=== PATIENT | female | born 1985 | race African-American/Black ===

== ENCOUNTER 2021-05-09 14:57 | Emergency (ER) | payer SELFPAY ==
[2021-05-09] MEDS ORDERED: Ondansetron 4 MG/2 ML SDV IVPUSH ONE (15:30)
[2021-05-09] MEDS ORDERED: Sodium Chloride 0.9% 10 ML Syringe FLUSH PRN (15:30)
[2021-05-09] MEDS ORDERED: Sodium Chloride 0.9% 1,000 ML IV SCH (15:30)
[2021-05-09] MEDS ORDERED: HYDROmorphone 0.5 MG/0.5 ML Syringe IVPUSH ONE (15:31)
--- NOTE | 2021-05-09 15:53 | EDM.PDOC ---
ED HPI GENERAL MEDICAL PROBLEM - General Chief Complaint: Abdominal Pain Stated Complaint: ABD/BACK PAIN Time Seen by Provider: 05/09/21 15:12 Source of Information: Reports: Patient, RN Notes Reviewed History Limitations: Reports: No Limitations - History of Present Illness INITIAL COMMENTS - FREE TEXT/NARRATIVE: Patient is a 35-year-old female who presents to the ER for evaluation of her low abdominal pain and back pain. Patient notes that this started this morning. States that she thinks she started her menses yesterday, and she typically gets some lower abdominal pain with this however it only lasts a few hours normally. She states that this pain has started and has not relented or stopped. Nothing seems really make it worse or better, states is just there. Her entire lower abdomen is sore, but she is exquisitely sore over the right lower quadrant at this time. Not sure about , and states there is a chance that she could be . Not having any fevers or chills, cough or shortness of breath, nausea/vomiting/diarrhea. Patient did not take anything for pain medication prior to coming to the ER. 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 ED EXAM, RENAL/ - Physical Exam Exam: See Below Exam Limited By: No Limitations General Appearance: Alert, WD/WN, No Apparent Distress Respiratory/Chest: No Respiratory Distress, Lungs Clear, Normal Breath Sounds, No Accessory Muscle Use, Chest Non-Tender Cardiovascular: Normal Peripheral Pulses, Regular Rate, Rhythm, No Edema GI/Abdominal: Normal Bowel Sounds, Soft, No Distention, No Mass, Tender (RLQ mainly with some rebound tenderness, but the entire lower abdomen is sore.) Extremities: Normal Inspection, Normal Capillary Refill Neurological: Alert, Oriented, Normal Cognition, No Motor/Sensory Deficits Psychiatric: Normal Affect, Normal Mood Skin Exam: Warm, Dry, Intact, Normal Color, No Rash Course - Vital Signs Last Recorded V/S: Last Vital Signs Temp 97.0 F 05/09/21 17:00 Pulse 88 05/09/21 17:00 Resp 18 05/09/21 17:00 BP 115/68 05/09/21 17:00 Pulse Ox 95 05/09/21 17:00 - Orders/Labs/Meds Orders: Active Orders 24 hr Category Date Time Status Peripheral IV Care [RC] . DIRECTED Care 05/09/21 15:31 Ordered Sodium Chloride 0.9% [Normal Saline] 1,000 ml Med 05/09/21 15:30 Ordered IV ASDIRECTED Sodium Chloride 0.9% [Saline Flush] Med 05/09/21 18:30 Active 10 ml FLUSH ASDIRECTED Sodium Chloride 0.9% [Saline Flush] Med 05/09/21 15:30 Ordered 10 ml FLUSH ASDIRECTED PRN Peripheral IV Insertion Adult [OM.PC] Stat Oth 05/09/21 15:31 Ordered Medication Orders Sodium Chloride (Normal Saline) 1,000 mls @ 999 mls/hr IV ASDIRECTED VICENTA Last Admin: 05/09/21 15:51 Dose: 999 mls/hr Documented by: DAVID Sodium Chloride (Sodium Chloride 0.9% 10 Ml Syringe) 10 ml FLUSH ASDIRECTED PRN PRN Reason: Keep Vein Open Last Admin: 05/09/21 16:57 Dose: 10 ml Documented by: DAVID Sodium Chloride (Sodium Chloride 0.9% 10 Ml Syringe) 10 ml FLUSH ASDIRECTED VICENTA Last Admin: 05/09/21 19:29 Dose: 10 ml Documented by: GINO Labs: Laboratory Tests 05/09/21 05/09/21 05/09/21 Range/Units 15:35 15:35 15:43 WBC 12.30 H (3.98-10.04) K/mm3 Corrected WBC 10.4 K/mm3 RBC 4.49 (3.98-5.22) M/mm3 Hgb 9.8 L (11.2-15.7) gm/dl Hct 29.4 L (34.1-44.9) % MCV 65.5 L (79.4-94.8) fl MCH 21.8 L (25.6-32.2) pg MCHC 33.3 (32.2-35.5) g/dl RDW Std Deviation 52.0 H (36.4-46.3) fL Plt Count 220 (182-369) K/mm3 Neut % (Auto) Cancelled Lymph % (Auto) Cancelled [place] % (Auto) Cancelled Eos % (Auto) Cancelled Baso % (Auto) Cancelled Neut # (Auto) Cancelled Lymph # (Auto) Cancelled [place] # (Auto) Cancelled Eos # (Auto) Cancelled Baso # (Auto) Cancelled Neutrophils % (Manual) 47 (40-60) % Band Neutrophils % 1 (0-10) % Lymphocytes % (Manual) 35 (20-40) % Atypical Lymphs % 0 % Monocytes % (Manual) 14 H (2-10) % Eosinophils % (Manual) 0 L (0.7-5.8) % Basophils % (Manual) 1 (0.1-1.2) Myelocytes % 2 Nucleated RBCs 18.0 % Manual Slide Review Cancelled Platelet Estimate Adequate Plt Morphology Comment See note Polychromasia 1+ slight Poikilocytosis 2+ moderate Anisocytosis 2+ moderate Macrocytosis 1+ slight Target Cells 2+ moderate Ovalocytes 1+ slight RBC Morph Comment Sodium (136-145) mEq/L Potassium (3.5-5.1) mEq/L Chloride (98-107) mEq/L Carbon Dioxide (21-32) mEq/L Anion Gap (5-15) BUN (7-18) mg/dL Creatinine (0.55-1.02) mg/dL Est Cr Clr Drug Dosing mL/min Estimated GFR (MDRD) (>60) mL/min BUN/Creatinine Ratio (14-18) Glucose (70-99) mg/dL Calcium (8.5-10.1) mg/dL Total Bilirubin (0.2-1.0) mg/dL AST (15-37) U/L ALT (14-59) U/L Alkaline Phosphatase (46-116) U/L C-Reactive Protein (<1.0) mg/dL Total Protein (6.4-8.2) g/dl Albumin (3.4-5.0) g/dl Globulin gm/dL Albumin/Globulin Ratio (1-2) Lipase (73-393) U/L Urine Color Yellow (Yellow) Urine Appearance Clear (Clear) Urine pH 7.0 (5.0-8.0) Ur Specific [place] 1.020 (1.005-1.030) Urine Protein 1+ H (Negative) Urine Glucose (UA) Negative (Negative) Urine Ketones Negative (Negative) Urine Occult Blood 1+ H (Negative) Urine Nitrite Negative (Negative) Urine Bilirubin Negative (Negative) Urine Urobilinogen 0.2 (0.2-1.0) Ur Leukocyte Esterase Negative (Negative) Urine RBC 0-5 (0-5) /hpf Urine WBC 0-5 (0-5) /hpf Ur Squamous Epith Cells 0-5 (0-5) /hpf Urine Bacteria Few (FEW) /hpf Urine Mucus Moderate H (FEW) /hpf Urine HCG, Qual Negative (NEGATIVE) 05/09/21 Range/Units 15:43 WBC (3.98-10.04) K/mm3 Corrected WBC K/mm3 RBC (3.98-5.22) M/mm3 Hgb (11.2-15.7) gm/dl Hct (34.1-44.9) % MCV (79.4-94.8) fl MCH (25.6-32.2) pg MCHC (32.2-35.5) g/dl RDW Std Deviation (36.4-46.3) fL Plt Count (182-369) K/mm3 Neut % (Auto) Lymph % (Auto) [place] % (Auto) Eos % (Auto) Baso % (Auto) Neut # (Auto) Lymph # (Auto) [place] # (Auto) Eos # (Auto) Baso # (Auto) Neutrophils % (Manual) (40-60) % Band Neutrophils % (0-10) % Lymphocytes % (Manual) (20-40) % Atypical Lymphs % % Monocytes % (Manual) (2-10) % Eosinophils % (Manual) (0.7-5.8) % Basophils % (Manual) (0.1-1.2) Myelocytes % Nucleated RBCs % Manual Slide Review Platelet Estimate Plt Morphology Comment Polychromasia Poikilocytosis Anisocytosis Macrocytosis Target Cells Ovalocytes RBC Morph Comment Sodium 143 (136-145) mEq/L Potassium 3.8 (3.5-5.1) mEq/L Chloride 109 H (98-107) mEq/L Carbon Dioxide 25 (21-32) mEq/L Anion Gap 12.8 (5-15) BUN 5 L (7-18) mg/dL Creatinine 0.6 (0.55-1.02) mg/dL Est Cr Clr Drug Dosing 130.76 mL/min Estimated GFR (MDRD) > 60 (>60) mL/min BUN/Creatinine Ratio 8.3 L (14-18) Glucose 119 H (70-99) mg/dL Calcium 8.4 L (8.5-10.1) mg/dL Total Bilirubin 2.1 H (0.2-1.0) mg/dL AST 98 H (15-37) U/L ALT 72 H (14-59) U/L Alkaline Phosphatase 107 (46-116) U/L C-Reactive Protein 0.8 (<1.0) mg/dL Total Protein 8.2 (6.4-8.2) g/dl Albumin 3.5 (3.4-5.0) g/dl Globulin 4.7 gm/dL Albumin/Globulin Ratio 0.7 L (1-2) Lipase 193 (73-393) U/L Urine Color (Yellow) Urine Appearance (Clear) Urine pH (5.0-8.0) Ur Specific [place] (1.005-1.030) Urine Protein (Negative) Urine Glucose (UA) (Negative) Urine Ketones (Negative) Urine Occult Blood (Negative) Urine Nitrite (Negative) Urine Bilirubin (Negative) Urine Urobilinogen (0.2-1.0) Ur Leukocyte Esterase (Negative) Urine RBC (0-5) /hpf Urine WBC (0-5) /hpf Ur Squamous Epith Cells (0-5) /hpf Urine Bacteria (FEW) /hpf Urine Mucus (FEW) /hpf Urine HCG, Qual (NEGATIVE) Meds: Medications Generic Name Dose Route Start Last Admin Trade Name Freq PRN Reason Stop Dose Admin Sodium Chloride 1,000 mls @ 999 mls/hr 05/09/21 15:30 05/09/21 15:51 Normal Saline IV 999 mls/hr ASDIRECTED VICENTA Administration Sodium Chloride 10 ml 05/09/21 15:30 05/09/21 16:57 Sodium Chloride 0.9% 10 Ml Syringe FLUSH 10 ml ASDIRECTED PRN Administration Keep Vein Open Sodium Chloride 10 ml 05/09/21 18:30 05/09/21 19:29 Sodium Chloride 0.9% 10 Ml Syringe FLUSH 10 ml ASDIRECTED VICENTA Administration Discontinued Medications Generic Name Dose Route Start Last Admin Trade Name Fabianq PRN Reason Stop Dose Admin Diatrizoate Meglum/Diatrizoate Sod 120 ml 05/09/21 18:25 05/09/21 19:28 Diatrizoate Meglumine/Diatrizoate Sodium 37% 120 Ml Bottle PO 05/09/21 18:26 90 ml ONETIME ONE Administration Hydromorphone HCl 0.5 mg 05/09/21 15:31 05/09/21 15:36 Hydromorphone 0.5 Mg/0.5 Ml Syringe IVPUSH 05/09/21 15:32 0.5 mg ONETIME ONE Administration Iopamidol 100 ml 05/09/21 18:25 05/09/21 19:29 Iopamidol 612 Mg/Ml 100 Ml Bottle IVPUSH 05/09/21 18:26 100 ml ONETIME ONE Administration Ondansetron HCl 4 mg 05/09/21 15:30 05/09/21 15:42 Ondansetron 4 Mg/2 Ml Sdv IVPUSH 05/09/21 15:31 Not Given ONETIME ONE - Re-Assessments/Exams Free Text/Narrative Re-Assessment/Exam: 05/09/21 15:51 Patient presents to the ER for the evaluation of her lower abdominal pain, we will go ahead and get basic labs to include a urinalysis by quick cath and a qualitative hCG to rule out , will await for initial lab results, and then move forward with imaging purposes. 05/09/21 16:43 Patient CBC has returned, and the white count is elevated at 12 at this time. Laboratory staff did come over and is concerned about the possibility of sickle cell disease, and she is going to be sending the patient's blood for pathology review. I will go ahead and inquire with the patient about the possibility of this, she did not make this known at initial exam. We will for sure try to get her followed up with her regular care provider for ongoing management, and results of the further laboratory review. 05/09/21 20:[address] has come back, radiology did appreciate an enlarged heart, a spleen that was absent, and incidental fat-containing umbilical hernia but no other acute abnormalities were appreciated. The appendix was visualized and was within normal size, there is no pelvic mass or adenopathy, no free fluid or inflammatory change that was seen. I did review the CT with Dr. 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 For today's purposes there is no major explanation as to what could have caused the patient's abdominal discomfort other than dysmenorrhea. We will have her follow-up likely with Dr. Westbrook for ongoing management at this time. Departure - Departure Time of Disposition: 20:06 Disposition: Home, Self-Care 01 Condition: Good Clinical Impression: Dysmenorrhea, Asplenia (congenital), Abnormal red cell morphology - Discharge Information *PRESCRIPTION DRUG MONITORING PROGRAM REVIEWED*: No *COPY OF PRESCRIPTION DRUG MONITORING REPORT IN PATIENT REMY: No Instructions: Dysmenorrhea, [id number] Referrals: Anais Westbrook MD [Physician] - 1 Week Forms: ED Department Discharge, ED Return to Work/School Form Additional Instructions: You were evaluated in the ER today for your lower abdominal pain. Thorough work-up done at today's visit demonstrates a white count that was modestly elevated, with an abnormal red cell morphology, clinically suspicious for possible sickle cell disease. Our laboratory has sent this out for further confirmation and testing. This will take some time to results, and you should be called with the results. CT of your abdomen demonstrates no focal abnormalities like appendicitis that would be the cause of your abdominal discomfort today. 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 You should receive a Pneumovax vaccine to help protect against pneumococcal pneumonia. This can be provided by a primary care provider. As you stated you do not have a primary care doctor in this area, I will refer you to Dr. Westbrook, a family practice provider in our clinic, she should be able to help you with all of your ongoing health management. Please call [phone] and obtain an appointment Dr. Westbrook, hopefully sometime next week for ongoing management. As far as your lower abdominal pain is concerned, it is likely that you could be suffering from dysmenorrhea or painful periods. Please try to use hot packs to the area, along with 600 mg ibuprofen every 6 hours for ongoing pain management. Please return to the ER at any time if symptoms change or worsen. Sepsis Event Note (ED) - Focused Exam Vital Signs: Vital Signs Temp Pulse Resp BP Pulse Ox 05/09/21 17:00 97.0 F 88 18 115/68 95 05/09/21 15:19 77 121/74 05/09/21 15:13 97.3 F 84 18 - My Orders Last 24 Hours: My Active Orders 05/09/21 15:30 Sodium Chloride 0.9% [Normal Saline] 1,000 ml IV ASDIRECTED Sodium Chloride 0.9% [Saline Flush] 10 ml FLUSH ASDIRECTED PRN 05/09/21 15:31 Peripheral IV Care [RC] . DIRECTED Peripheral IV Insertion Adult [OM.PC] Stat 05/09/21 18:30 Sodium Chloride 0.9% [Saline Flush] 10 ml FLUSH ASDIRECTED - Assessment/Plan Last 24 Hours: My Active Orders 05/09/21 15:30 Sodium Chloride 0.9% [Normal Saline] 1,000 ml IV ASDIRECTED Sodium Chloride 0.9% [Saline Flush] 10 ml FLUSH ASDIRECTED PRN 05/09/21 15:31 Peripheral IV Care [RC] . DIRECTED Peripheral IV Insertion Adult [OM.PC] Stat 05/09/21 18:30 Sodium Chloride 0.9% [Saline Flush] 10 ml FLUSH ASDIRECTED
[2021-05-09] MEDS ORDERED: Diatrizoate Meglumine/Diatrizoate Sodium 37% 120 ML Bottle PO ONE (18:25)
[2021-05-09] MEDS ORDERED: Iopamidol 612 MG/ML 100 ML Bottle IVPUSH ONE (18:25)
[2021-05-09] MEDS ORDERED: Sodium Chloride 0.9% 10 ML Syringe FLUSH SCH (18:30)
--- NOTE | 2021-05-09 19:50 | CT ---
CT abdomen and pelvis Technique: Multiple axial sections were obtained from above the dome of the diaphragm inferiorly through the pubic symphysis. Intravenous and oral contrast was utilized. Delayed images were obtained to the bladder. Findings: Visualized lung bases show nothing acute. Liver shows no focal abnormality. Spleen is not present. Heart is enlarged. No pericardial effusion is seen. Adrenal glands show no nodule. Kidneys show symmetric contrast enhancement. Delayed images show contrast within the distal ureters and within the bladder. Gallbladder is visualized and shows no calcification to indicate calcified gallstones. Pancreas is within normal limits. Abdominal aorta shows no aneurysm. No retroperitoneal adenopathy is seen. Several lymph nodes are seen within the right lower mesentery which are believed to be within normal limits. Appendix is seen which is normal in size. No pelvic mass or adenopathy is seen. No free fluid or inflammatory change is seen. Bone window settings were reviewed and appear within normal limits for the patient's age. Incidental note of a fat-containing umbilical hernia. Impression: 1. Heart is enlarged. 2. Absent spleen. 3. Incidental fat-containing umbilical hernia. 4. Other portions of the CT exam of the abdomen and pelvis appear within normal limits. Diagnostic code #3
== END 2021-05-09 20:40 | disposition home or self-care (01) ==
LOC: JD.ED 14:57
DX: N94.6 Dysmenorrhea, unspecified (principal); Q89.01 Asplenia (congenital); R71.8 Other abnormality of red blood cells
CPT/HCPCS: 36415; 74177; 80053; 81001; 81025; 83690; 85007; 85027; 86140; 96374; 99284; J1170; J7030; Q9963; Q9967

== ENCOUNTER 2021-08-06 04:03 | Emergency (ER) | payer SELFPAY ==
[2021-08-06] MEDS ORDERED: Alum Hydrox/Mag Hydrox/Simeth 30 ML, Lidocaine 2% 15 ML PO STA ×2 (04:38)
--- NOTE | 2021-08-06 04:42 | EDM.PDOC ---
<Dinesh Marquez - Last Filed: 08/06/21 06:56> ED HPI GENERAL MEDICAL PROBLEM - General Chief Complaint: Abdominal Pain Stated Complaint: SEVERE UPPER ABD PAIN Time Seen by Provider: 08/06/21 04:25 Source of Information: Reports: Patient, Family (Mother) History Limitations: Reports: Physical Impairment (Complaining of pain, reluctant to answer questions) - History of Present Illness INITIAL COMMENTS - FREE TEXT/NARRATIVE: Ms. Cisneros is a pleasant 35-year-old woman who now presents to the ED stating that she developed sudden-onset epigastric pain radiating through to her back as she was preparing to go to sleep around 2200 last night. She is unable to describe the character, and she states that she has not identified any modifiers, although she reported that her pain was made worse when I asked her to take a deep breath while auscultating her lungs. She denies associated nausea, vomiting, constipation, or diarrhea. She states that she took 2 baby aspirin and drank some hot milk, which did not help. No prior similar symptoms. Here in the ED, the patient was initially noted to be tachypneic at 24 rpm, otherwise, she is hemodynamically stable, afebrile, saturating 94% on room air. She is very anxious and excitable, constantly moving around the exam room. It is very difficult to obtain a history from her. Prior to last night, the patient denies having a recent fever, chills, sore throat, ear pain, nasal or sinus congestion, cough, dyspnea, chest pain, palpitations, nausea, vomiting, constipation, diarrhea, abdominal pain, urinary symptoms, recent weight gain or weight loss, recent bloody bowel movements or black bowel movements, recent joint aches, headaches, or rashes. The patient does not have a PCP. She has not received a COVID vaccination, nor an influenza vaccination this season. Upper Abdomen Pain Score (Numeric/FACES): 10 - Related Data Allergies Allergy/AdvReac Type Severity Reaction Status Date / Time No Known Allergies Allergy Verified 08/06/21 04:16 Home Meds: Home Meds Hydrocodone/Acetaminophen [HYDROcodone-Acetaminophen 5-325 MG] 1 each PO Q6H PRN #10 tab 08/06/21 [Rx] Pantoprazole Sodium [Protonix] 40 mg PO QAM #30 tablet. 08/06/21 [Rx] Past Medical History Gastrointestinal History: Reports: Other (See Below) (Congenital asplenia) [employer] History: Reports: Spontaneous - Past Surgical History Female Surgical History: Reports: D&C Social & Family History - Tobacco Use Tobacco Use Status *Q: Never Tobacco User Second Hand Smoke Exposure: No - Alcohol Use Alcohol Use History: No - Recreational Drug Use Recreational Drug Use: No - Living Situation & Occupation Living situation: Reports: Single, with Family (Mother) Occupation: Employed ([employer]) ED ROS GENERAL - Review of Systems Review Of Systems: Comprehensive ROS is negative, except as noted in HPI. ED EXAM, GI/ABD - Physical Exam Exam: See Below Exam Limited By: Physical Impairment General Appearance: Alert, WD/WN, Mild Distress (Patient very excitable, moving around a lot) Eyes: Bilateral: Normal Appearance, EOMI Ears: Normal External Exam, Hearing Grossly Normal Nose: Normal Inspection Throat/Mouth: Normal Inspection, Normal Lips, Normal Voice, No Airway Compromise Head: Atraumatic, Normocephalic Neck: Normal Inspection, Full Range of Motion Respiratory/Chest: No Respiratory Distress, Lungs Clear, Normal Breath Sounds, No Accessory Muscle Use Cardiovascular: Normal Peripheral Pulses, Regular Rate, Rhythm, No Edema, No Gallop, No JVD, No Murmur, No Rub GI/Abdominal Exam: Normal Bowel Sounds, Soft, No Organomegaly, No Distention, No Abnormal Bruit, No Mass, Tender (To a discrete area in the epigastrium only. Completely nontender elsewhere.) Back Exam: Normal Inspection, Full Range of Motion. No: CVA Tenderness (L), CVA Tenderness (R) Extremities: Normal Inspection, Normal Range of Motion, No Pedal Edema, Normal Capillary Refill Neurological: Alert, Oriented, Normal Cognition, No Motor/Sensory Deficits Psychiatric: Anxious Skin Exam: Warm, Dry, Intact, Normal Color, No Rash Course - Re-Assessments/Exams Free Text/Narrative Re-Assessment/Exam: 08/06/21 04:39 The patient is complaining of epigastric pain with no nausea. She has not identified any modifiers, although it did mention that her pain was worse when she was asked to take a deep breath, and she reports that she has tenderness in her epigastric area, only, with no tenderness whatsoever to palpation elsewhere on her abdomen. We will start with a GI cocktail, to see if that has any e ffect. If not, I will proceed with a work-up to evaluate for pancreatitis. 08/06/21 04:56 The patient reports getting no relief from the GI cocktail. I have therefore ordered a work-up including several blood tests and a CT of the abdomen and pelvis with oral and IV contrast. In case she requires admission or transfer, I have also ordered a swab for the SARS-CoV-2 virus. In the meantime, she will be given IV Dilaudid, IV Zofran, and IV fluid. 08/06/21 06:32 The patient's CBC is remarkable for leukocytosis of 19.22, but with 0% bandemia, and an H/H depressed at 9.3/28.4, with the remainder of her CBC being unremarkable. Her CMP is remarkable for mild hyperglycemia of 126, a TBil elevated at 2.1, and an AST/ALT mildly elevated at 84/60, respectively, and the remainder of her CMP being unremarkable. Her lipase level is within normal limits at 224. Her qualitative hCG is negative. Reviewing prior labs, I see that the patient's H/H was 9.8/29.4 on 05/09/2021. 08/06/21 07:[address] Galvan, and care of the patient turned over to him at this time, for change of shift. Departure - Departure Disposition: Home, Self-Care 01 Clinical Impression: Constipation, Dyspepsia, Reflux gastritis - Discharge Information Referrals: PCP,None [Primary Care Provider] - Forms: ED Department Discharge Additional Instructions: Return to the emergency room with any questions problems or worsening symptoms. Follow-up in the hospital clinic on Friday or of this week for recheck call today for an appointment [phone]. Your prescriptions have been sent to the [place] [facility] in the [employer] [facility]. The first 1 is for hydrocodone this is a pain pill take 1 every 6 hours only if needed. The second 1 is a stomach pill Protonix. Take 1 every morning starting tomorrow morning 30 to 60 minutes before your morning meal. 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 Place the other bottle in the refrigerator and drink in 6 hours if you do not have a large bowel movement. Sepsis Event Note (ED) - Evaluation Sepsis Screening Result: No Definite Risk <WendyrichardClint Lucius - Last Filed: 08/06/21 11:52> Course - Vital Signs Last Recorded V/S: Last Vital Signs Temp 36.5 C 08/06/21 04:17 Pulse 74 08/06/21 04:17 Resp 24 H 08/06/21 04:17 BP 130/80 08/06/21 04:17 Pulse Ox 94 L 08/06/21 04:17 - Orders/Labs/Meds Orders: Active Orders 24 hr Category Date Time Status Sodium Chloride 0.9% [Normal Saline] 1,000 ml Med 08/06/21 05:00 Active IV ASDIRECTED Medication Orders Sodium Chloride (Normal Saline) 1,000 mls @ 150 mls/hr IV ASDIRECTED VICENTA Last Admin: 08/06/21 05:33 Dose: 150 mls/hr Documented by: CLAY Labs: Laboratory Tests 08/06/21 08/06/21 08/06/21 Range/Units 05:25 05:25 05:25 WBC 19.22 H (3.98-10.04) K/mm3 RBC 4.26 (3.98-5.22) M/mm3 Hgb 9.3 L (11.2-15.7) gm/dl Hct 28.4 L (34.1-44.9) % MCV 66.7 L (79.4-94.8) fl MCH 21.8 L (25.6-32.2) pg MCHC 32.7 (32.2-35.5) g/dl RDW Std Deviation 49.4 H (36.4-46.3) fL Plt Count 272 (182-369) K/mm3 MPV TNP Neutrophils % (Manual) 35 L (40-60) % Band Neutrophils % 0 (0-10) % Lymphocytes % (Manual) 51 H (20-40) % Atypical Lymphs % 4 % Monocytes % (Manual) 9 (2-10) % Eosinophils % (Manual) 0 L (0.7-5.8) % Basophils % (Manual) 0 L (0.1-1.2) Metamyelocytes % 1 Nucleated RBCs 2.0 % Platelet Estimate Adequate Plt Morphology Comment See note Polychromasia 1+ slight Hypochromasia 2+ moderate Poikilocytosis 2+ moderate Anisocytosis 2+ moderate Microcytosis 1+ slight Sickle Cells Few Target Cells 2+ moderate RBC Morph Comment Abnormal Sodium 140 (136-145) mEq/L Potassium 4.0 (3.5-5.1) mEq/L Chloride 102 (98-107) mEq/L Carbon Dioxide 27 (21-32) mEq/L Anion Gap 15.0 (5-15) BUN 5 L (7-18) mg/dL Creatinine 0.5 L (0.55-1.02) mg/dL Est Cr Clr Drug Dosing 139.97 mL/min Estimated GFR (MDRD) > 60 (>60) mL/min BUN/Creatinine Ratio 10.0 L (14-18) Glucose 126 H (70-99) mg/dL Calcium 8.9 (8.5-10.1) mg/dL Total Bilirubin 2.1 H (0.2-1.0) mg/dL AST 84 H (15-37) U/L ALT 60 H (14-59) U/L Alkaline Phosphatase 98 (46-116) U/L Total Protein 8.0 (6.4-8.2) g/dl Albumin 3.8 (3.4-5.0) g/dl Globulin 4.2 gm/dL Albumin/Globulin Ratio 0.9 L (1-2) Lipase 224 (73-393) U/L HCG, Qual Negative (NEGATIVE) Meds: Medications Generic Name Dose Route Start Last Admin Trade Name Freq PRN Reason Stop Dose Admin Sodium Chloride 1,000 mls @ 150 mls/hr 08/06/21 05:00 08/06/21 05:33 Normal Saline IV 150 mls/hr ASDIRECTED VICENTA Administration Discontinued Medications Generic Name Dose Route Start Last Admin Trade Name Freq PRN Reason Stop Dose Admin Hydrocodone Bitart/Acetaminophen 1 tab 08/06/21 10:20 08/06/21 10:38 Acetaminophen/Hydrocodone 325-5 Mg Tab PO 08/06/21 10:21 1 tab ONETIME ONE Administration Al Hydroxide/Mg Hydroxide 30 0 ml 08/06/21 04:38 08/06/21 04:40 ml/ Lidocaine HCl 15 ml PO 08/06/21 04:39 45 ml ONETIME STA Administration Diatrizoate Meglum/Diatrizoate Sod 120 ml 08/06/21 06:25 08/06/21 07:01 Diatrizoate Meglumine/Diatrizoate Sodium 37% 120 Ml Bottle PO 08/06/21 06:26 120 ml ONETIME ONE Administration Fentanyl 50 mcg 08/06/21 07:49 08/06/21 08:14 Fentanyl 100 Mcg/2 Ml Sdv IVPUSH 08/06/21 07:50 50 mcg ONETIME ONE Administration Hydromorphone HCl 0.5 mg 08/06/21 04:53 08/06/21 05:34 Hydromorphone 1 Mg/Ml Syringe IVPUSH 08/06/21 04:54 0.5 mg ONETIME STA Administration Iopamidol 100 ml 08/06/21 06:25 08/06/21 07:01 Iopamidol 612 Mg/Ml 100 Ml Bottle IVPUSH 08/06/21 06:26 100 ml ONETIME ONE Administration Ondansetron HCl 4 mg 08/06/21 04:53 08/06/21 05:33 Ondansetron 4 Mg/2 Ml Sdv IVPUSH 08/06/21 04:54 4 mg ONETIME ONE Administration Pantoprazole Sodium 80 mg 08/06/21 07:49 08/06/21 08:14 Pantoprazole 40 Mg Vial IVPUSH 08/06/21 07:50 80 mg BOLUS ONE Administration Sodium Chloride 10 ml 08/06/21 06:25 08/06/21 07:01 Sodium Chloride 0.9% 10 Ml Sdv FLUSH 08/06/21 06:26 10 ml ONETIME ONE Administration Sucralfate 1 gm 08/06/21 07:49 08/06/21 08:13 Sucralfate Suspension 1 Gm/10 Ml Cup PO 08/06/21 07:50 1 gm ONETIME ONE Administration - Re-Assessments/Exams Free Text/Narrative Re-Assessment/Exam: 08/06/21 07:50 Assumed care at change of shift awaiting CT. CT did come back she is got increased stool within the colon no other acute changes noted. Appendix not well visualized pancreas within normal limits. On my examination she has active bowel sounds she is quite uncomfortable with pain in the epigastric area to a lesser degree this extends into the left upper quadrant. At this point she has had a GI cocktail of has not seem to help I will give her some Carafate Protonix and a little bit of fentanyl. He received Dilaudid and this has not helped. 08/06/21 10:23 She denies much improvement from the fentanyl I have given IV Protonix and p.o. Carafate and she is denying any this helped. I will give her [place] now see if we can get her some relief and then will continue with Protonix Carafate and s tart mag citrate at home if we can get her symptoms under control. 08/06/21 11:46 The patient seems to be doing a little better at this time I gave her a [place] I think the best plan of action at this point is to send her home with a few [place] have her drink a bottle of mag citrate when she gets home repeated in 6 hours if needed for upper abdominal symptoms we will start her on Protonix 1 daily. Then she agrees to follow-up in the clinic later this week. Departure - Departure Time of Disposition: 11:46 Sepsis Event Note (ED) - Focused Exam Vital Signs: Vital Signs Temp Pulse Resp BP Pulse Ox 08/06/21 04:17 36.5 C 74 24 H 130/80 94 L
[2021-08-06] MEDS ORDERED: Ondansetron 4 MG/2 ML SDV IVPUSH ONE (04:53)
[2021-08-06] MEDS ORDERED: HYDROmorphone 1 MG/ML Syringe IVPUSH STA (04:53)
[2021-08-06] MEDS ORDERED: Sodium Chloride 0.9% 1,000 ML IV SCH (05:00)
[2021-08-06] MEDS ORDERED: Iopamidol 612 MG/ML 100 ML Bottle IVPUSH ONE (06:25)
[2021-08-06] MEDS ORDERED: Diatrizoate Meglumine/Diatrizoate Sodium 37% 120 ML Bottle PO ONE (06:25)
[2021-08-06] MEDS ORDERED: Sodium Chloride 0.9% 10 ML SDV FLUSH ONE (06:25)
--- NOTE | 2021-08-06 07:18 | CT ---
CT abdomen and pelvis Technique: Multiple axial sections were obtained from above the dome of the diaphragm inferiorly through the pubic symphysis. Intravenous and oral contrast were utilized. Delayed images were also obtained through the abdomen and pelvis. Reconstructed coronal and sagittal images were also obtained. Comparison: Prior CT abdomen and pelvis study of 05/09/21. Findings: Visualized lung bases show nothing acute. Liver contains no focal abnormality. Spleen is not seen. Pancreas is within normal limits. Adrenal glands show no discrete nodule. Kidneys show symmetric contrast enhancement with no hydronephrosis or mass. Delayed images show contrast within the ureters and within the bladder. Abdominal aorta shows no aneurysm. No retroperitoneal adenopathy is seen. Gallbladder contains no calcified gallstones. No mesenteric abnormalities are seen. Fat-containing umbilical hernia is noted. Stool is noted throughout the colon which is mildly increased. Appendix is not visualized with certainty. Bone window settings were reviewed which appear within normal limits for the patient's age. Impression: 1. Mild increased stool within the colon. 2. No acute abnormality is otherwise seen on CT study of the abdomen and pelvis. No definite findings of pancreatitis. Diagnostic code #2
[2021-08-06] MEDS ORDERED: Pantoprazole 40 MG Vial IVPUSH ONE (07:49)
[2021-08-06] MEDS ORDERED: fentaNYL 100 MCG/2 ML SDV IVPUSH ONE (07:49)
[2021-08-06] MEDS ORDERED: Sucralfate Suspension 1 GM/10 ML Cup PO ONE (07:49)
[2021-08-06] MEDS ORDERED: Acetaminophen/HYDROcodone 325-5 MG Tab PO ONE (10:20)
== END 2021-08-06 12:09 | disposition home or self-care (01) ==
LOC: JD.ED 04:03
DX: K59.00 Constipation, unspecified (principal); K21.9 Gastro-esophageal reflux disease without esophagitis; K29.70 Gastritis, unspecified, without bleeding; Z79.899 Other long term (current) drug therapy
CPT/HCPCS: 36415; 74177; 80053; 83690; 84703; 85007; 85027; 96374; 96375; 99284; A9270; C9113; J1170; J2405; J3010; J7030; Q9963; Q9967